=== PATIENT | male | born 1965 ===

== ENCOUNTER 2024-08-12 06:26 | Day surgery (SDC) | payer OTHER ==
[2024-08-12] MEDS ORDERED: fentaNYL CITRATE 50 MCG/ML AMPUL IV PUSH ONE (10:15)
[2024-08-12] MEDS ORDERED: MIDAZOLAM HCL 2 MG/2 ML VIAL IV ONE (10:15)
[2024-08-12] MEDS ORDERED: DIPHENHYDRAMINE HCL 50 MG/ML VIAL 1ML IV ONE (10:15)
== END 2024-08-12 12:35 | disposition home or self-care (01) ==
LOC: AMB-ENDOS 06:26
PROVIDERS: ATTEND Colon & Rectal Surgery
DX: K63.5 Polyp of colon (principal); K57.30 Diverticulosis of large intestine without perforation or abscess without bleeding; D12.0 Benign neoplasm of cecum

== ENCOUNTER 2025-09-29 05:30 | Day surgery (SDC) | payer OTHER ==
[2025-09-29] MEDS ORDERED: FLUMAZENIL 0.5 MG/5 ML ML IV STA (08:20)
[2025-09-29] MEDS ORDERED: fentaNYL CITRATE 50 MCG/ML AMPUL IV PUSH ONE (08:30)
[2025-09-29] MEDS ORDERED: DIPHENHYDRAMINE HCL 50 MG/ML VIAL 1ML IV ONE (08:30)
[2025-09-29] MEDS ORDERED: MIDAZOLAM HCL 2 MG/2 ML VIAL IV ONE (08:30)
== END 2025-09-29 10:25 | disposition home or self-care (01) ==
LOC: AMB-ENDOS 05:30
PROVIDERS: ATTEND Colon & Rectal Surgery
DX: R19.5 Other fecal abnormalities (principal)